=== PATIENT | female | born 1965 | race Caucasian/White ===

== ENCOUNTER 2018-08-13 00:30 | Emergency (ER) | payer MEDICAID ==
[2018-08-13] MEDS ORDERED: Ondansetron 4 MG/2 ML SDV IVPUSH ONE (01:11)
[2018-08-13] MEDS ORDERED: fentaNYL 100 MCG/2 ML SDV IVPUSH PRN ×2 (01:13→02:23)
[2018-08-13] MEDS ORDERED: Sodium Chloride 0.9% 1,000 ML IV SCH (01:15)
--- NOTE | 2018-08-13 01:17 | EDM.PDOC ---
ED HPI GENERAL MEDICAL PROBLEM - General Chief Complaint: Abdominal Pain Stated Complaint: ABD PAIN Time Seen by Provider: 08/13/18 00:50 Source of Information: Reports: Patient History Limitations: Reports: No Limitations - History of Present Illness INITIAL COMMENTS - FREE TEXT/NARRATIVE: 53-year-old female who has had bloating and severe abdominal pain since 3 PM this afternoon. Started with diarrhea this morning, and now this afternoon she is not passing any gas or having any bowel movement. Pain is diffuse through the abdomen radiating to her back. Nausea but no vomiting, no fever. She has not had this pain in the past. She has a history of gastric bypass, cholecystectomy, appendectomy. No shortness of breath, no urinary symptoms. Duration: Hour(s): (9 hours) Severity: Moderate Associated Symptoms: Reports: Loss of Appetite, Malaise. Denies: Fever/Chills, Shortness of Breath Abdominal Pain Score (Numeric/FACES): 8 - Related Data Allergies Allergy/AdvReac Type Severity Reaction Status Date / Time hydromorphone HCl Allergy Itching Verified 08/13/18 00:44 [From Dilaudid] Home Meds: Home Meds Levothyroxine Sodium [Synthroid] 100 mcg PO DAILY 01/22/13 [History] Omeprazole 40 mg PO DAILY 01/22/13 [History] Pramipexole Di-HCl [Mirapex] 0.5 mg PO QPM 12/05/17 [History] hydrOXYzine pamoate [Vistaril] 50 mg PO BID 12/05/17 [History] DULoxetine HCl [Duloxetine HCl] 120 mg PO DAILY 08/13/18 [History] Past Medical History HEENT History: Reports: Allergic Rhinitis, Impaired Vision Gastrointestinal History: Reports: GERD [employer] History: Reports: Musculoskeletal History: Reports: Arthritis, Fracture Psychiatric History: Reports: Addiction, Anxiety, Depression Endocrine/Metabolic History: Reports: Hypothyroidism Hematologic History: Reports: Anemia, B12 Deficiency, Folic Acid, Iron Deficiency - Infectious Disease History Infectious Disease History: Reports: C-Difficile, Chicken Pox, Influenza - Past Surgical History GI Surgical History: Reports: Appendectomy, Bariatric Procedure, Cholecystectomy , EGD Female Surgical History: Reports: Tubal Ligation Social & Family History - Tobacco Use Smoking Status *Q: Current Every Day Smoker Years of Tobacco use: 5 Packs/Tins Daily: 1 - Caffeine Use Caffeine Use: Reports: Coffee - Recreational Drug Use Recreational Drug Use: No ED ROS GENERAL - Review of Systems Review Of Systems: See Below Constitutional: Reports: Malaise, Decreased Appetite. Denies: Fever, Chills HEENT: Reports: No Symptoms Respiratory: Denies: Shortness of Breath Cardiovascular: Denies: Chest Pain GI/Abdominal: Reports: Abdominal Pain, Diarrhea, Nausea. Denies: Vomiting : Reports: No Symptoms Skin: Reports: No Symptoms Neurological: Denies: Headache Psychiatric: Reports: No Symptoms ED EXAM, GI/ABD - Physical Exam Exam: See Below Exam Limited By: No Limitations General Appearance: Alert, Mild Distress Eyes: Bilateral: Normal Appearance (No jaundice) Respiratory/Chest: No Respiratory Distress, Lungs Clear Cardiovascular: Regular Rate, Rhythm GI/Abdominal Exam: Normal Bowel Sounds, Soft, Tender (Diffuse tenderness to palpation with mild guarding, worse in the periumbilical area) Neurological: Alert, Oriented Psychiatric: Normal Affect, Normal Mood Skin Exam: Warm, Dry Course - Vital Signs Last Recorded V/S: Last Vital Signs Temp 96.3 F 08/13/18 00:50 Pulse 68 08/13/18 02:31 Resp 16 08/13/18 02:31 BP 106/72 08/13/18 02:31 Pulse Ox 93 L 08/13/18 02:31 - Orders/Labs/Meds Labs: Laboratory Tests 08/13/18 08/13/18 08/13/18 Range/Units 01:11 01:20 01:20 WBC 10.3 (4.5-11.0) K/uL RBC 4.49 (3.30-5.50) M/uL Hgb 13.4 (12.0-15.0) g/dL Hct 40.1 (36.0-48.0) % MCV 89 (80-98) fL MCH 30 (27-31) pg MCHC 33 (32-36) % Plt Count 399 (150-400) K/uL Neut % (Auto) 65 (36-66) % Lymph % (Auto) 22 L (24-44) % [place] % (Auto) 9 H (2-6) % Eos % (Auto) 3 (2-4) % Baso % (Auto) 1 (0-1) % Sodium 139 L (140-148) mmol/L Potassium 3.8 (3.6-5.2) mmol/L Chloride 105 (100-108) mmol/L Carbon Dioxide 25 (21-32) mmol/L Anion Gap 12.8 (5.0-14.0) mmol/L BUN 15 (7-18) mg/dL Creatinine 0.7 (0.6-1.0) mg/dL Est Cr Clr Drug Dosing 82.67 mL/min Estimated GFR (MDRD) > 60 (>60) Glucose 66 L (74-106) mg/dL Lactic Acid (0.4-2.0) mmol/L Calcium 8.7 (8.5-10.1) mg/dL Total Bilirubin 0.2 (0.2-1.0) mg/dL AST 22 (15-37) U/L ALT 33 (12-78) U/L Alkaline Phosphatase 100 (46-116) U/L Total Protein 6.6 (6.4-8.2) g/dL Albumin 3.1 L (3.4-5.0) g/dL Globulin 3.5 (2.3-3.5) g/dL Albumin/Globulin Ratio 0.9 L (1.2-2.2) Lipase 149 (73-393) U/L Urine Color Yellow Urine Appearance Slightly cloudy Urine pH 5.0 (4.5-8.0) Ur Specific [place] 1.015 (1.008-1.030) Urine Protein Negative (NEGATIVE) mg/dL Urine Glucose (UA) Normal (NEGATIVE) mg/dL Urine Ketones Negative (NEGATIVE) mg/dL Urine Occult Blood Negative (NEGATIVE) Urine Nitrite Negative (NEGATIVE) Urine Bilirubin Negative (NEGATIVE) Urine Urobilinogen Normal (NORMAL) mg/dL Ur Leukocyte Esterase Negative (NEGATIVE) Urine RBC 0-5 (0-5) Urine WBC 0-5 (0-5) Ur Epithelial Cells Moderate Amorphous Sediment Not seen Urine Bacteria Few Urine Mucus Not seen 08/13/18 Range/Units 02:45 WBC (4.5-11.0) K/uL RBC (3.30-5.50) M/uL Hgb (12.0-15.0) g/dL Hct (36.0-48.0) % MCV (80-98) fL MCH (27-31) pg MCHC (32-36) % Plt Count (150-400) K/uL Neut % (Auto) (36-66) % Lymph % (Auto) (24-44) % [place] % (Auto) (2-6) % Eos % (Auto) (2-4) % Baso % (Auto) (0-1) % Sodium (140-148) mmol/L Potassium (3.6-5.2) mmol/L Chloride (100-108) mmol/L Carbon Dioxide (21-32) mmol/L Anion Gap (5.0-14.0) mmol/L BUN (7-18) mg/dL Creatinine (0.6-1.0) mg/dL Est Cr Clr Drug Dosing mL/min Estimated GFR (MDRD) (>60) Glucose (74-106) mg/dL Lactic Acid 0.7 (0.4-2.0) mmol/L Calcium (8.5-10.1) mg/dL Total Bilirubin (0.2-1.0) mg/dL AST (15-37) U/L ALT (12-78) U/L Alkaline Phosphatase (46-116) U/L Total Protein (6.4-8.2) g/dL Albumin (3.4-5.0) g/dL Globulin (2.3-3.5) g/dL Albumin/Globulin Ratio (1.2-2.2) Lipase (73-393) U/L Urine Color Urine Appearance Urine pH (4.5-8.0) Ur Specific [place] (1.008-1.030) Urine Protein (NEGATIVE) mg/dL Urine Glucose (UA) (NEGATIVE) mg/dL Urine Ketones (NEGATIVE) mg/dL Urine Occult Blood (NEGATIVE) Urine Nitrite (NEGATIVE) Urine Bilirubin (NEGATIVE) Urine Urobilinogen (NORMAL) mg/dL Ur Leukocyte Esterase (NEGATIVE) Urine RBC (0-5) Urine WBC (0-5) Ur Epithelial Cells Amorphous Sediment Urine Bacteria Urine Mucus Meds: Medications Discontinued Medications Generic Name Dose Route Start Last Admin Trade Name Freq PRN Reason Stop Dose Admin Fentanyl 50 mcg 08/13/18 01:13 08/13/18 01:29 Sublimaze IVPUSH 50 mcg Q6H PRN Administration Pain (severe 7-10) Fentanyl 50 mcg 08/13/18 02:23 08/13/18 02:29 Sublimaze IVPUSH 50 mcg Q6H PRN Administration Pain (severe 7-10) Sodium Chloride 1,000 mls @ 500 mls/hr 08/13/18 01:15 08/13/18 01:30 Normal Saline IV 500 mls/hr ASDIRECTED TAE Administration Sodium Chloride 72 mls @ 3.2 mls/sec 08/13/18 02:03 08/13/18 02:11 Normal Saline IV 08/13/18 02:04 3.2 mls/sec ASDIRECTED STA Administration Iopamidol 100 ml 08/13/18 02:02 08/13/18 02:10 Isovue-300 (61%) IV 08/13/18 02:03 100 ml . DIRECTED STA Administration Ondansetron HCl 4 mg 08/13/18 01:11 08/13/18 01:29 Zofran IVPUSH 08/13/18 01:12 4 mg ONETIME ONE Administration - Re-Assessments/Exams Free Text/Narrative Re-Assessment/Exam: 08/13/18 01:16 An IV of normal saline was started at 500 mL an hour, she was given 50 g of fentanyl and 4 mg of IV Zofran. CBC CMP and lipase were obtained as well as a UA , expectations are for an abdominal CT scan. 08/13/18 02:27 Patient returned from CAT scan still having significant pain, another 50 g of fentanyl was given. CBC is normal CMP were reassuring and lipase normal. A lactic acid was added. 08/13/18 03:48 Workup proved to be surprisingly normal. CBC was normal, CMP normal, lactic acid normal. CT with IV contrast was basically normal other than a small segment of bowel with some mild stranding. Typical of enteritis, ischemic bowel is much less likely with no fever, normal white count and normal lactic acid. Patient wanted to try to go home she was feeling quite a bit better so was discharged with 10 Vicodin to take for extra pain control and encouraged to start with clear liquids and advance diet as tolerated. Departure - Departure Time of Disposition: 03:55 Disposition: Home, Self-Care 01 Condition: Good Clinical Impression: Abdominal pain Qualifiers: Abdominal location: generalized Qualified Code(s): R10.84 - Generalized abdominal pain - Discharge Information Instructions: Abdominal Pain, Adult, [id number] Referrals: Chris Harper MD [Primary Care Provider] - Forms: ED Department Discharge Care Plan Goals: There liquids only for the next 6-12 hours, and advance diet slowly as tolerated. Use pain medicine as prescribed for extra pain control, and return anytime if worsening such as fever or increased pain. Also consider rechecking in 2-3 days if not improving satisfactorily.
[2018-08-13] MEDS ORDERED: Iopamidol 612 MG/ML 100 ML Bottle IV STA (02:02)
[2018-08-13 02:31] VITALS: BP 106/72
--- NOTE | 2018-08-13 03:36 | CRLCT ---
INDICATION: Abdominal pain. TECHNIQUE: The abdomen and pelvis were scanned from the lung bases through the symphysis pubis with 100 mL of Isovue-300. Sagittal and coronal reformatted images were generated. COMPARISON: Prior CT of the abdomen and pelvis dated 05/12/2013 Findings : The lung bases are clear. No consolidations or pleural effusions. The liver enhances homogeneously. There are clips in the gallbladder fossa from prior cholecystectomy. There postoperative changes in left upper quadrant from a prior gastric bypass procedure. Spleen is unremarkable. Pancreas is unremarkable. There is no high-grade bowel obstruction. Retained stool in the colon. There is moderate free fluid in the cul-de-sac. Mild wall prominence of left lower abdominal and pelvic small bowel segments with perhaps associated mesenteric edema. Correlate for enteritis. Appendix is not seen. 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 Mild bladder wall prominence probably related to under distention. 2 cm low dense left adnexal structure on image 108 probably representing a dominant follicle. IMPRESSION: 1. Postoperative changes from cholecystectomy and gastric bypass. 2. No high-grade mechanical small bowel obstruction. 3. Mild wall prominence left lower abdominal and pelvic small bowel segments with associated mesenteric edema could not exclude enteritis. 4. Collateral vessels again noted probably related to chronically occluded central SMV. 5. Moderate pelvic free fluid. 6. Probable 2 cm left adnexal cyst or follicle. Please note that all CT scans at this facility use dose modulation, iterative reconstruction, and/or weight-based dosing when appropriate to reduce radiation dose to as low as reasonably achievable. Dictated by Elbert Pineda MD @ Aug 14 2018 8:29AM Signed by Dr. Elbert Pineda @ Aug 14 2018 8:38AM
== END 2018-08-13 03:55 | disposition home or self-care (01) ==
LOC: JP.ED 00:30
DX: R10.84 Generalized abdominal pain (principal); K21.9 Gastro-esophageal reflux disease without esophagitis; F17.210 Nicotine dependence, cigarettes, uncomplicated; Z88.8 Allergy status to other drugs, medicaments and biological substances; Z79.899 Other long term (current) drug therapy
CPT/HCPCS: 36415; 74177; 80053; 81001; 83605; 83690; 85025; 99283; J2405; J3010; J7030; Q9967